=== PATIENT | male | born 1975 | race Caucasian/White ===

== ENCOUNTER 2020-05-29 07:00 | Outpatient (CLI) | payer BC, OTHER ==
--- NOTE | 2020-05-29 14:55 | XRAY Report ---
PROCEDURE: Hip w/Pelvis 2-3V RT INDICATIONS: PIRIFORMIS SYNDROME TECHNIQUE: AP pelvis with lateral view(s) of the right hip(s). COMPARISON: None. FINDINGS: Bones: No fractures or dislocations. Pelvic ring appears intact. No suspicious bony lesions. No av ascular necrosis of the right femoral head. Soft tissues: The visualized bowel gas pattern is normal. No suspicious soft tissue calcifications. IMPRESSION: No significant osseous abnormality. Reviewed by: Stuart Molina MD on 05/29/2020 1:53 PM NIKOLAS Approved by: Stuart Molina MD on 05/29/2020 1:53 PM AKRENE Station ID: [id number]
== END 2020-05-29 23:59 | disposition home or self-care (01) ==
LOC: DI.S 07:00
PROVIDERS: ATTEND Emergency Medicine
DX: G57.01 Lesion of sciatic nerve, right lower limb (principal); M25.551 Pain in right hip

== ENCOUNTER 2020-07-12 08:46 | Outpatient (CLI) | payer BC ==
--- NOTE | 2020-07-12 12:28 | MRI Report ---
PROCEDURE: Lumbar Spine W/O INDICATIONS: R SCIATICA, PIRIFORMIS SYNDROME TECHNIQUE: Noncontrast sagittal T1 spin echo and T2 fast echo, sagittal STIR, axial T1 and T2 fast spin echo thr ough the lumbar spine. In cases with scoliosis, additional coronal T2 fast spin echo may be performe d. COMPARISON: None. FINDINGS: Image quality: Excellent. Alignment and Curvature: There is trace retrolisthesis of L4 on L5, L5 on S1. Bone Marrow: Marrow is of normal overall signal. Moderate reactive endplate changes are present at L 4-5, L5-S1. No acute vertebral body compression fractures. Spinal Cord: Conus medullaris terminates at the L1 level. Visualized cord demonstrates normal signa l and size. Paraspinous Soft Tissues: No paravertebral masses. Liver is mildly enlarged. Discs: Moderate to severe desiccation is present L4-5, L5-S1. L1-L2: No disc bulge, spinal stenosis or foraminal narrowing. L2-L3: Minimal disc bulge with slight effacement of thecal sac. Minimal bilateral foraminal narrow ing. L3-L4: Minimal disc bulge with slight effacement of the anterior thecal sac. Minimal left foraminal narrowing. L4-L5: Mild disc bulge with small posterior central superimposed protrusion. Mild spinal stenosis. [id number]-[id number] bilateral foraminal narrowing, left greater than right. L5-S1: Mild disc bulge with what appears to be small superimposed protrusion/extrusion the right po sterior right paracentral location with minimal compromise of the right lateral recess. Moderate to s evere bilateral foraminal narrowing is present. IMPRESSION: 1. Early degenerative changes most notable at L5-S1 with disc bulge with what appears to be a posteri or right paracentral protrusion/extrusion, causing compromise of the right lateral recess and exiting nerve root on the right. There is bilateral moderate to severe foraminal narrowing. Reviewed by: Rody Srivastava MD on 07/12/2020 12:26 PM PDT Approved by: Rody Srivastava MD on 07/12/2020 12:26 PM PDT Station ID: [id number]
== END 2020-07-12 08:47 | disposition home or self-care (01) ==
LOC: DI 08:46
PROVIDERS: ATTEND Physician Assistant
DX: M51.17 Intervertebral disc disorders with radiculopathy, lumbosacral region (principal); G57.01 Lesion of sciatic nerve, right lower limb

== ENCOUNTER 2021-08-09 11:39 | Outpatient (CLI) | payer BC ==
--- NOTE | 2021-08-09 17:23 | XRAY Report ---
PROCEDURE: Lumbar Spine 2 View INDICATIONS: LUMBAR RADICULOPOTHY TECHNIQUE: 3 views of the lumbar spine were acquired. COMPARISON: None. FINDINGS: Bones: 5 [id number] vertebrae are present. There is normal bony alignment. [id number] (1). No vertebral body compression fractures. No suspicious bony lesions. Soft tissues: Overlying bowel gas pattern is normal. No suspicious soft tissue calcifications. IMPRESSION: Mild degenerative disc disease in lower lumbar spine. No acute compression fracture or sp ondylolisthesis. Reviewed by: Bhupinder Richard MD on 08/09/2021 5:21 PM PDT Approved by: Bhupinder Richard MD on 08/09/2021 5:21 PM PDT Station ID: [id number]
== END 2021-08-09 11:40 | disposition home or self-care (01) ==
LOC: DI 11:39
PROVIDERS: ATTEND Neurological Surgery
DX: M51.36 Other intervertebral disc degeneration, lumbar region (principal)

== ENCOUNTER 2023-06-14 07:10 | Outpatient (CLI) | payer BC ==
[2023-06-14 14:40] LABS: BASOPHILS # (AUTO) 0.1 10^3/uL (0.0-0.1); BASOPHILS % (AUTO) 0.8 %; EOSINOPHILS # (AUTO) 0.2 10^3/uL (0.0-0.7); EOSINOPHILS % (AUTO) 2.7 %; HCT - HEMATOCRIT 45.9 % (42.0-52.0); HGB - HEMOGLOBIN 14.9 g/dL (14.0-18.0); LYMPHOCYTES # (AUTO) 2.2 10^3/uL (1.5-3.5); LYMPHOCYTES % (AUTO) 29.5 %; MEAN CORPUSCULAR HEMOGLOBIN 29.9 pg (27.0-31.0); MEAN CORPUSCULAR HGB CONC 32.5 g/dL (32.0-36.0); MEAN CORPUSCULAR VOLUME 92.2 fL (80.0-94.0); MONOCYTES # (AUTO) 0.8 10^3/uL (0.0-1.0); MONOCYTES % (AUTO) 11.2 %; NEUTROPHILS # (AUTO) 4.1 10^3/uL (1.5-6.6); NEUTROPHILS % (AUTO) 55.1 %; PLT - PLATELET COUNT 293 10^3/uL (130-450); RED BLOOD COUNT 4.98 10^6/uL (4.70-6.10); RED CELL DISTRIBUTION WIDTH 12.7 % (12.0-15.0); WHITE BLOOD COUNT 7.5 x10^3/uL (4.8-10.8)
[2023-06-14 14:53] LABS: ALBUMIN 4.1 g/dL (3.2-5.5); ALBUMIN/GLOBULIN RATIO 1.3 (1.0-2.2); ALKALINE PHOSPHATASE 74 IU/L (42-121); ALT ALANINE AMINOTRANSFERASE 43 IU/L (10-60); AST ASPARTATE AMINOTRANSFERASE 21 IU/L (10-42); BILIRUBIN,TOTAL 0.6 mg/dL (0.2-1.0); BUN - BLOOD UREA NITROGEN 21 mg/dL (6-20); CALCIUM 9.6 mg/dL (8.5-10.3); CARBON DIOXIDE - CO2 29 mmol/L (21-32); CHLORIDE 105 mmol/L (101-111); CHOLESTEROL 239 mg/dL; GFR - MDRD 80 (>89); GLUCOSE 99 mg/dL (74-104); HDL CHOLESTEROL 34 mg/dL; LDL CHOLESTEROL,CALCULATED 136 mg/dL; POTASSIUM 4.1 mmol/L (3.5-4.5); SODIUM 138 mmol/L (135-145); TOTAL PROTEIN 7.3 g/dL (6.4-8.9); TRIGLYCERIDES 344 mg/dL (48-352); VLDL CHOLESTEROL 69 mg/dL
[2023-06-14 15:08] LABS: THYROID STIMULATING HORMONE 1.07 uIU/mL (0.34-5.60)
[2023-06-14 21:18] LABS: ESTIMATED AVERAGE GLUCOSE 103 mg/dL (70-100); HEMOGLOBIN A1c% 5.2 % (4.27-6.07)
== END 2023-06-14 07:11 | disposition home or self-care (01) ==
LOC: LAB.S 07:10
PROVIDERS: ATTEND Physician Assistant Medical
DX: Z13.9 Encounter for screening, unspecified (principal)
CPT/HCPCS: 36415; 80053; 80061; 83036; 83721; 84443; 85025

== ENCOUNTER 2023-06-29 10:15 | Outpatient (CLI) | payer BC ==
--- NOTE | 2023-06-29 17:44 | XRAY Report ---
PROCEDURE: Finger(s) LT INDICATIONS: THUMB PAIN,LEFT TECHNIQUE: AP hand, 2 views of the fifth finger(s) acquired. COMPARISON: None. FINDINGS: Bones: No fractures or dislocations. No suspicious bony lesions. Soft tissues: No suspicious soft tissue calcifications or masses. IMPRESSION: No visualized acute fracture or dislocation. However, occult injury cannot be excluded. Recommend francis rt interval imaging follow-up in 7-10 days as clinically indicated for additional evaluation. Reviewed by: Rody Srivastava MD on 06/29/2023 5:42 PM PDT Approved by: Rody Srivastava MD on 06/29/2023 5:42 PM PDT Station ID: [id number]
== END 2023-06-29 10:16 | disposition home or self-care (01) ==
LOC: DI 10:15
PROVIDERS: ATTEND Nurse Practitioner
DX: M79.645 Pain in left finger(s) (principal)

== ENCOUNTER 2023-08-02 15:04 | Outpatient (CLI) | payer BC ==
--- NOTE | 2023-08-02 20:15 | XRAY Report ---
PROCEDURE: Hand 3+V LT INDICATIONS: THUMB PAIN TECHNIQUE: 3 views of the hand acquired. COMPARISON: Left thumb radiographs 06/29/2023 FINDINGS: Bones: No acute fractures or dislocations. No suspicious bony lesions. Mild osteoarthrosis. Soft tissues: No suspicious soft tissue calcifications. IMPRESSION: No acute osseous abnormality. If symptoms persist or there is continued clinical concern, further conor luation with MRI or CT may be helpful. Reviewed by: Kurt Kennedy MD on 08/02/2023 8:14 PM PDT Approved by: Kurt Kennedy MD on 08/02/2023 8:14 PM PDT Station ID: [id number]
== END 2023-08-02 15:05 | disposition home or self-care (01) ==
LOC: DI.S 15:04
PROVIDERS: ATTEND Physician Assistant Surgical
DX: M79.645 Pain in left finger(s) (principal)

== ENCOUNTER 2023-08-22 15:51 | Outpatient (CLI) | payer BC ==
--- NOTE | 2023-08-23 14:54 | MRI Report ---
PROCEDURE: Hand LT WO INDICATIONS: RUPTURE OF L ULNAR LIGAMENT TECHNIQUE: Noncontrast oblique coronal T1 spin echo and T2 fast spin echo with fat saturation, axial and sagitta l T2 fast spin echo with fat saturation, through the thumb. COMPARISON: Left hand radiograph dated 08/02/2023 and left thumb radiograph dated 06/29/2023. FINDINGS: Image quality: Excellent. Bones: The bones are normally aligned, without marrow contusions or fractures. Mild osteoarthritic c hanges are seen at first CMC joint and first MCP joint. No intra-osseous lesions. First carpometacarpal joint: On sagittal images, the dorsal radial ligament and posterior oblique li gament appear mildly thickened. The intermetacarpal ligament between the 1st and 2nd metacarpal base s also appears intact. On the volar aspect, the deep and superficial layers of the anterior oblique ligament also appears thickened. First metacarpophalangeal joint: The proper and accessory components of the radial collateral ligame nt appears intact, along with overlying fibers of the abductor pollicis brevis tendon. There is sugg estion of low to moderate grade partial thickness tear involving proximal ulnar collateral ligament o f first MCP joint near its proximal insertion. The overlying fibers of the adductor pollicis muscle a re intact.. The aponeurosis of the adductor pollicis muscle also appears normal. The volar plate ap pears intact on sagittal images, situated between the radial and ulnar sesamoids. Thenar muscles: The superficial abductor pollicis longus muscle appears normal, with tendon insertin g on the radial base of the first proximal phalanx. The opponens pollicis muscle also appears normal , inserting on the first metacarpal shaft. The flexor pollicis brevis muscle appears normal, with te ndon inserting on the radial sesamoid and first proximal phalanx. The oblique and transverse heads o f the adductor pollicis muscle appear normal, inserting on the ulnar sesamoid and proximal phalanx as part of the adductor aponeurosis. Flexor pollicis longus tendon: Tendon fibers appear intact, coursing between the thenar eminence mus cles and the adductor pollicis muscle, and inserting on the volar base of the distal phalanx. The fi rst annular javier at the level of the first MCP joint appears intact, intimate with the sesamoids. The second annular javier at the level of interphalangeal joint also appears intact. The oblique annie ular javier between the 1st and 2nd annular pulleys appears intact, with ulnar proximal attachment in timate with the adductor aponeurosis. The variable annular javier also appears intact between the fi rst annular and oblique annular pulleys. Extensor tendons: The extensor pollicis brevis tendon appears intact, coursing radial to the extenso r pollicis longus tendon and inserting on the dorsal base of the proximal phalanx, blending with the dorsal plate of the first MCP joint. The extensor pollicis longus tendon appears intact as it insert s on the dorsal base of the distal phalanx. The sagittal band at the level of the first MCP joint ap pears intact. The abductor pollicis longus tendon slips appear intact at the radial aspect of the pr oximal phalanx, proximal to the abductor pollicis brevis tendon insertion. Miscellaneous: No ganglion cysts. IMPRESSION: 1. Low to moderate grade partial thickness involving ulnar collateral ligament of first MCP joint its proximal insertion. No full-thickness ligament rupture. The radial collateral ligament is intact. 2. Mildly thickened dorsal and volar ligaments of first CMC joints suggestive of ligament sprain. 3. 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 No fracture or dislocation. 4. Extensor and flexor tendons are intact. No muscle signal abnormalities. Reviewed by: Bhupinder Richard MD on 08/23/2023 2:52 PM PDT Approved by: Bhupinder Richard MD on 08/23/2023 2:52 PM PDT Station ID: [id number]
== END 2023-08-22 15:52 | disposition home or self-care (01) ==
LOC: DI 15:51
PROVIDERS: ATTEND Physician Assistant Surgical
DX: S53.32XA Traumatic rupture of left ulnar collateral ligament, initial encounter (principal); M19.042 Primary osteoarthritis, left hand; M18.12 Unilateral primary osteoarthritis of first carpometacarpal joint, left hand